=== PATIENT | female | born 1965 | race Caucasian/White ===

== ENCOUNTER 2018-02-16 14:06 | Emergency (ER) | payer BC ==
[2018-02-16 14:38] VITALS: BP 126/81; PULSE 73; RESP 20; TEMP 96.6
[2018-02-16] MEDS ORDERED: TDAP VACCINE 0.5 ML SUS IM ONE (14:45)
== END 2018-02-16 15:22 | disposition home or self-care (01) ==
LOC: ED 14:06
DX: S01.451A Open bite of right cheek and temporomandibular area, initial encounter (principal); W54.0XXA Bitten by dog, initial encounter
CPT/HCPCS: 90471; 90715; 99283